=== PATIENT | female | born 1945 | race Caucasian/White ===

== ENCOUNTER 2018-04-13 07:57 | Day surgery (SDC) | payer MEDICARE ==
[~2018-04-13 07:57] MED LIST: Bupivacaine 0.25% 20 ML INJ IJ ONE; Bupivacaine 0.75% Inj(30mL) ONE; Iohexol 240 (50 ml) ONE; Lidocaine 2% MPF (5 ml) Inj ONE; Midazolam 2 MG/2 ML VIAL ONE; methylPREDNISolone Depo 80 mg/ml Inj ONE
[2018-04-13] MEDS ORDERED: MethylPREDNISolone Depo 40 mg/ml Inj ONE (11:53)
[2018-04-13 12:30] VITALS: O2SAT 95
[2018-04-13 12:33] VITALS: BP 125/73; PULSE 57; RESP 16; TEMP 97.8
--- NOTE | 2018-04-13 17:04 | RAD ---
Date of service: 04/13/2018 PROCEDURE: Intraoperative Fluoroscopy. HISTORY: CERVICAL SPONDYLOSIS FINDINGS: Fluoroscopic assistance was provided for cervical facet block at the C2-3, C3-4, and C4-5 levels. Please refer to the operative report from MERLY Ferguson.
--- NOTE | 2018-04-13 20:28 | OP ---
Copied To: Sierra ePrson MD Attending MD: Sierra Person MD PROCEDURE DATE: 04/13/2018 PREOPERATIVE DIAGNOSIS: Cervical spondylosis without myelopathy, myalgias. POSTOPERATIVE DIAGNOSIS: Cervical spondylosis without myelopathy, myalgias. PROCEDURE: 1. Bilateral C2-C3, C3-C4, C4-C5 medial branch blocks. 2. Trigger point injections. X-RAY: [id number], fluoroscopy of the spine. ANESTHESIA: MAC/local. SURGEON: Sierra Person MD COMPLICATIONS: None. BLOOD LOSS: 2 mL. INDICATION: On physical exam, this patient's pain was made worse by side bending toward the affected side or extending the spine (backward bending). The patient's neck will generally feel stiff in the morning, and prolonged inactivity such as sitting, standing, or driving the car causes the pain to refer to the shoulder region. This pain is intractable, axial in nature, and unresponsive to conservative management. The pain is adversely affecting quality of life and activities of daily living. TECHNIQUE: After comprehensive informed consent was obtained, the risks of the procedure explained and questions answered. The patient was placed prone on the operating table in a comfortable position. Confirmation of the procedure to be performed was obtained from the patient. The skin overlying the area to be injected was confirmed and cleaned in a strict sterile fashion using chlorhexidine. Sterile drape was placed around the area to be injected. The area to be injected was superficially anesthetized with 1 mL of 1% lidocaine using a 27-gauge, 1.25-inch needle at each level noted above. Under fluoroscopic guidance, a curved 25-gauge, 3.5-inch spinal needle was advanced until the tip of the needle was ventro-medial to position the tip adjacent to the articular pillar, in contact with bone midway between the zygapophyseal joints above and below. The patient experienced no paresthesia during needle placement. The bone was contacted, and the C-arm was rotated laterally to confirm proper needle placement. The patient experienced no paresthesias in the upper extremities during needle placement. After negative aspiration for blood, 0.5 mL of non-ionic contrast was injected to outline the medial branch nerve, then 1 mL of a mixture of 10 mL of 0.25% bupivacaine mixed with 40 mg of Depo-Medrol was slowly injected at each level. The needle was removed, and a Band-Aid was placed over the puncture site. The fluoroscopic image was stored for the medical record. Trigger Point Injections/Greater and Lesser Occipital Nerve Blocks: Tender to palpation on cervical areas and pain shooting up posterior head. Patient signed informed consent. Cervical area was prepped and draped in sterile fashion. A 25-gauge needle was used to inject trigger point areas in trapezius muscles, paracervical muscles, and rhomboids bilaterally. The greater and lesser occipital nerves were also injected bilaterally by inserting needle 1 cm lateral and inferior to the posterior occipital protuberance. Total volume used was 8 mL of 0.25% Marcaine mixed with 40 mg Kenalog. Intermittent aspiration was done throughout with no heme or CSF aspirated throughout. Patient tolerated procedure well. ASSESSMENT: Upon discharge, the patient noted more than 80% relief in the affected painful area. The patient was instructed to keep a pain diary to utilize over the next 4 hours while performing activities that are normally aggravating. 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 The patient understands that this block is diagnostic and temporary. If there is significant pain relief during the next 4 hours, we will schedule for radiofrequency ablation of the offending pain fibers around the affected facet joints to help provide long-term relief. DISPOSITION: Patient was given instructions to follow up in two weeks and was discharged in stable condition. No events or complications. Sierra Person MD
== END 2018-04-13 11:52 | disposition home or self-care (01) ==
LOC: C.SDS 07:57
PROVIDERS: ATTEND Anesthesiology Pain Medicine
DX: M47.812 Spondylosis without myelopathy or radiculopathy, cervical region (principal)
CPT/HCPCS: 20553; 64490; 64491; 64492; J1040; J2250; J3010